=== PATIENT | male | born 1945 | race Caucasian/White ===

== ENCOUNTER 2020-12-12 06:54 | Day surgery (SDC) | payer MEDICARE, BC ==
--- NOTE | 2020-12-12 07:19 | PCM.PREANE ---
Preanesthetic Assessment - Anesthesia/Transfusion/Family Hx Anesthesia History: Prior Anesthesia Without Reaction Family History of Anesthesia Reaction: No Transfusion History: Prior Transfusion Without Reaction - Review of Systems General: No Symptoms, Other (covid in august) Pulmonary: No Symptoms Cardiovascular: Other (s/p cabg in 2016, no symptoms currently. 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, EF 50/55% - Allergies Allergies/Adverse Reactions: Allergies Allergy/AdvReac Type Severity Reaction Status Date / Time venom-honey bee Allergy Anaphylactic Verified 04/03/16 10:43 [bee venom (honey bee)] Shock - Blood Blood Available: No Product(s) Available: None - Anesthesia Plan Pre-Op Medication Ordered: None - Acknowledgements Anesthesia Type Planned: MAC Pt an Appropriate Candidate for the Planned Anesthesia: Yes Alternatives and Risks of Anesthesia Discussed w Pt/Guardian: Yes Pt/Guardian Understands and Agrees with Anesthesia Plan: Yes PreAnesthesia Questionnaire HEENT History: Reports: Impaired Vision Cardiovascular History: Reports: Bypass, Hypertension Genitourinary History: Reports: Prostate Disorder Musculoskeletal History: Reports: Osteoarthritis - Infectious Disease History Infectious Disease History: Reports: MRSA Other Infectious Disease History: found in nose prior to surgery - Past Surgical History HEENT Surgical History: Reports: Oral Surgery Cardiovascular Surgical History: Reports: Coronary Artery Bypass Musculoskeletal Surgical History: Reports: Knee Replacement - HOME MEDS Home Medications: Home Meds Amoxicillin [Amoxil] 500 mg PO ONETIME 11/24/15 [History] Aspirin [[place] Aspirin] 81 mg PO DAILY 11/24/15 [History] Calcium Carbonate/Vitamin D3 [Calcium Carbonate/Vitamin D 1250 MG-200 Unit] 1 tab PO DAILY 11/24/15 [History] Docusate Sodium [Colace] 100 mg PO BID PRN 11/24/15 [History] Metoprolol Tartrate [Lopressor] 25 mg PO BID 11/24/15 [History] Multivitamin [Multivitamins] 1 each PO DAILY 11/24/15 [History] Rosuvastatin Calcium [Crestor] 5 mg PO DAILY 11/24/15 [History] Ubidecarenone [Co Q-10] 100 mg PO DAILY 11/24/15 [History]
[2020-12-12] MEDS ORDERED: Sodium Chloride 0.9% 10 ML Syringe FLUSH PRN (07:20)
[2020-12-12] MEDS ORDERED: Lidocaine 1%/Sod Bicarbonate in NS 8.4% 1 ML Syringe IDERM PRN (07:20)
[2020-12-12] MEDS ORDERED: Lactated Ringers 1,000 ML IV SCH (07:30)
[2020-12-12] MEDS ORDERED: Propofol 200 MG/20 ML SDV ONE ×2 (07:34→08:24)
[2020-12-12] MEDS ORDERED: Lidocaine 1% 4 ML ONE (07:55)
--- NOTE | 2020-12-12 08:51 | PCM48HPAN ---
Post Anesthesia Note - EVALUATION WITHIN 48HRS OF ANESTHETIC Vital Signs in Normal Range: Yes Patient Participated in Evaluation: Yes Respiratory Function Stable: Yes Airway Patent: Yes Cardiovascular Function Stable: Yes Hydration Status Stable: Yes Pain Control Satisfactory: Yes Nausea and Vomiting Control Satisfactory: Yes Mental Status Recovered: Yes Vital Signs: Last Vital Signs Temp 37.6 C 12/12/20 07:00 Pulse 83 12/12/20 07:00 Resp 16 12/12/20 07:00 BP 160/77 H 12/12/20 07:00 Pulse Ox 93 L 12/12/20 07:00
--- NOTE | 2020-12-12 09:16 | PROC ---
DATE OF OPERATION: 12/12/2020 SURGEON: Valeria Mehta MD PREOPERATIVE DIAGNOSIS: History of polyps. POSTOPERATIVE DIAGNOSES: One polyp and diverticulosis. PROCEDURE: Colonoscopy. ANESTHESIA: Monitored anesthesia care. ESTIMATED BLOOD LOSS: Minimal. INDICATION AND CONSENT: Mr. Jewell is a 75-year-old male with a history of colon cancer in the family in his mother, who was diagnosed with colon cancer in her 70s. The patient had last colonoscopy 6 years ago with polyps removed, came in for surveillance. I discussed with the patient. We talked about risks, benefits, and alternatives. All questions were answered. Informed consent was obtained. DESCRIPTION OF PROCEDURE: The patient was taken to procedure room, placed in left lateral decubitus position. Time-out was performed. Monitored anesthesia care was induced. We began the colonoscopy with perianal exam which was normal. Digital rectal exam was normal. Scope was inserted and taken all the way to the cecum. Appendiceal orifice and ileocecal valve were photographed. Prep was good. Then, upon withdrawal of the scope, we noted 1 polyp in the distal ascending colon close to the hepatic flexure. This was about 4 mm, was semi-pedunculated, polyp was difficult to remove. We tried several maneuvers including cold forceps and snare. We were unsuccessful initially with a snare and cold forceps. We tried again with cold forceps and we were able to remove this polyp. EBL was minimal. There were no other polyps in the rest of the colon. There was a small diverticula in the sigmoid colon. Retroflexion was normal in the rectum. Then, air was suctioned out and this concluded this part of the procedure. The patient to be awakened and recover and return home. The patient to follow up in 2 weeks for postop check. MMODAL /[id number]
[2020-12-12 10:17] VITALS: BP 158/78; PULSE 77
== END 2020-12-12 09:50 | disposition home or self-care (01) ==
LOC: JD.SDS 06:54
PROVIDERS: ATTEND Surgery
DX: Z12.11 Encounter for screening for malignant neoplasm of colon (principal); D12.2 Benign neoplasm of ascending colon; K57.30 Diverticulosis of large intestine without perforation or abscess without bleeding; I10 Essential (primary) hypertension; Z98.890 Other specified postprocedural states; Z79.899 Other long term (current) drug therapy; Z80.0 Family history of malignant neoplasm of digestive organs; Z86.010 Personal history of colon polyps; Z86.73 Personal history of transient ischemic attack (TIA), and cerebral infarction without residual deficits; Z91.030 Bee allergy status; Z87.891 Personal history of nicotine dependence
CPT/HCPCS: 45380; J2704; J7120; 00812; 88305; 99100